=== PATIENT | male | born 1985 | race Two or more races ===

== ENCOUNTER 2020-12-07 02:11 | Emergency (ER) | payer SELFPAY ==
[~2020-12-07] VITALS: Ht 172.7 cm; Wt 77.1 kg
[2020-12-07 08:07] VITALS: BP 137/98
== END 2020-12-07 08:12 | disposition left against medical advice (07) ==
LOC: EDBD 02:11 → ER 02:11
DX: T65.91XA Toxic effect of unspecified substance, accidental (unintentional), initial encounter (principal); Y92.89 Other specified places as the place of occurrence of the external cause; Z53.21 Procedure and treatment not carried out due to patient leaving prior to being seen by health care provider